=== PATIENT | male | born 1990 | race Hispanic/Latino ===

== ENCOUNTER 2017-12-24 07:47 | Emergency (ER) | payer OTHER ==
[2017-12-24] MEDS: KETOROLAC TROMETHAMINE 10 MG TAB PO (08:12)
== END 2017-12-24 09:49 | disposition home or self-care (01) ==
LOC: M ED 07:47
DX: M79.605 Pain in left leg (principal); M79.89 Other specified soft tissue disorders; Z77.098 Contact with and (suspected) exposure to other hazardous, chiefly nonmedicinal, chemicals; Z88.0 Allergy status to penicillin
CPT/HCPCS: 93971